=== PATIENT | male | born 1975 | race Caucasian/White ===

== ENCOUNTER 2018-09-08 00:25 | Emergency (ER) | payer SELFPAY ==
[2018-09-08 00:43] VITALS: O2SAT 95
[2018-09-08] MEDS ORDERED: Iohexol 240 (50 ml) PO STA (01:17)
[2018-09-08 01:35] LABS: BASO % 0.2 % (0.0-2.0); EOS % 0.2 % (0.0-4.0); HEMOGLOBIN 14.7 g/dL (12.0-18.0); LYMPH % 7.3 % (20.0-40.0); MEAN CELL VOLUME 87.9 fL (80.0-94.0); MEAN CORPUSCULAR HGB CONC 34.1 g/dL (33.0-37.0); MONO # 1.4 K/uL (0.0-0.8); MONO % 10.2 % (0.0-10.0); NEUT # 11.5 K/uL (1.8-7.0); NEUT % 82.1 % (50.0-75.0); PLATELET COUNT 224 K/uL (130-400); RBC 4.89 Mil/uL (4.40-5.90); RED CELL DISTRIBUTION WIDTH 13.3 % (11.5-14.5)
[2018-09-08 01:37] LABS: URINE BILIRUBIN NEGATIVE (NEGATIVE); URINE CLARITY Clear (Clear); URINE COLOR Yellow (YELLOW); URINE GLUCOSE (UA) NORMAL (Normal); URINE LEUKOCYTE ESTERASE NEG Leu/uL (Negative); URINE PROTEIN NEGATIVE (NEGATIVE)
[2018-09-08 01:49] LABS: ALB/GLOB RATIO 1.4 (1.0-2.1); ALBUMIN 4.6 g/dL (3.5-5.0); ALT/SGPT 34 U/L (21-72); AST/SGOT 22 U/L (17-59); BLOOD UREA NITROGEN 9 mg/dL (9-20); GFR NON-AFRICAN AMERICAN > 60; LIPASE 58 U/L (23-300)
[2018-09-08 01:58] LABS: EOSINOPHIL 1 % (0-4); LYMPHOCYTE 8 % (20-40); MONOCYTE 12 % (0-10); NEUTROPHIL 79 % (50-75); PLATELET ESTIMATE NORMAL (NORMAL); TOTAL CELLS COUNTED 100
[2018-09-08 01:59] LABS: URINE BLOOD TRACE (NEGATIVE)
--- NOTE | 2018-09-08 02:33 | C.PDOC ---
History Of Present Illness 42 year old male presents to the ED c/o RLQ abdominal pain that started yesterday. Patient is s/p appendectomy done on 2011. Patient denies fever, chills, nausea, vomit, diarrhea, bloody stools, back pain, dysuria, hematuria. Time Seen by Provider: 09/08/18 00:57 Chief Complaint (Nursing): Abdominal Pain History Per: Patient History/Exam Limitations: no limitations Onset/Duration Of Symptoms: Days (1) Current Symptoms Are (Timing): Still Present Location Of Pain/Discomfort: RLQ Quality Of Discomfort: "Pain" Associated Symptoms: denies: Nausea, Vomiting, Diarrhea, Urinary Symptoms Recent travel outside of the [place]: No Additional History Per: Patient Past Medical History Reviewed: Historical Data, Nursing Documentation, Vital Signs Vital Signs: Last Vital Signs Temp 100.5 F H 09/08/18 00:35 Pulse 114 H 09/08/18 00:35 Resp 20 09/08/18 00:35 BP 122/83 09/08/18 00:35 Pulse Ox 95 09/08/18 00:35 - Medical History PMH: No Chronic Diseases Surgical History: Appendectomy (August 2011) Family History: States: Unknown Family Hx - Social History Hx Alcohol Use: Yes Hx Substance Use: No - Immunization History Hx Tetanus Toxoid Vaccination: No Hx Influenza Vaccination: Yes (May 2018) Hx Pneumococcal Vaccination: No Review Of Systems Constitutional: Negative for: Fever, Chills Cardiovascular: Negative for: Chest Pain Respiratory: Negative for: Shortness of Breath Gastrointestinal: Positive for: Abdominal Pain. Negative for: Nausea, Vomiting, Diarrhea Genitourinary: Negative for: Dysuria Musculoskeletal: Negative for: Back Pain Skin: Negative for: Rash Neurological: Negative for: Weakness, Numbness, Headache Physical Exam - Physical Exam Appears: Non-toxic, No Acute Distress Skin: Warm, Dry Head: Normacephalic Eye(s): bilateral: Normal Inspection Oral Mucosa: Moist Neck: Normal ROM, Supple Chest: Symmetrical Cardiovascular: Rhythm Regular Respiratory: Normal Breath Sounds, No Rales, No Rhonchi, No Wheezing Gastrointestinal/Abdominal: Soft, Tenderness (Moderate RLQ), No Distention, No Guarding, Rebound Back: No CVA Tenderness Extremity: Normal ROM, No Tenderness, No Swelling Neurological/Psych: Oriented x3, Normal Speech, Normal Cognition Gait: Steady ED Course And Treatment - Laboratory Results Result Diagrams: 09/08/18 01:32 09/08/18 01:32 Lab Results: Total Bilirubin 1.7 mg/dL (0.2-1.3) H 09/08/18 01:32 AST 22 U/L (17-59) 09/08/18 01:32 ALT 34 U/L (21-72) 09/08/18 01:32 Alkaline Phosphatase 96 U/L (38-126) 09/08/18 01:32 Total Protein 8.0 g/dL (6.3-8.3) 09/08/18 01:32 Albumin 4.6 g/dL (3.5-5.0) 09/08/18 01:32 Globulin 3.4 gm/dL (2.2-3.9) 09/08/18 01:32 Albumin/Globulin Ratio 1.4 (1.0-2.1) 09/08/18 01:32 Lipase 58 U/L (23-300) 09/08/18 01:32 Urine Color Yellow (YELLOW) 09/08/18 01:32 Urine Clarity Clear (Clear) 09/08/18 01:32 Urine pH 5.0 (5.0-8.0) 09/08/18 01:32 Ur Specific Drexel 1.015 (1.003-1.030) 09/08/18 01:32 Urine Protein Negative mg/dL (NEGATIVE) 09/08/18 01:32 Urine Glucose (UA) Normal mg/dL (Normal) 09/08/18 01:32 Urine Ketones 1+ mg/dL (NEGATIVE) H 09/08/18 01:32 Urine Blood Trace (NEGATIVE) H 09/08/18 01:32 Urine Nitrate Negative (NEGATIVE) 09/08/18 01:32 Urine Bilirubin Negative (NEGATIVE) 09/08/18 01:32 Urine Urobilinogen 2.0 mg/dL (0.2-1.0) 09/08/18 01:32 Ur Leukocyte Esterase Neg Kristopher/uL (Negative) 09/08/18 01:32 Urine WBC (Auto) < 1 /hpf (0-5) 09/08/18 01:32 Urine RBC (Auto) 2 /hpf (0-3) 09/08/18 01:32 O2 Sat by Pulse Oximetry: 95 (ON RA) Pulse Ox Interpretation: Normal - CT Scan/US CT abd/pelvis Other Rad Studies (CT/US): Read By Radiologist, Radiology Report Reviewed CT/US Interpretation: CT SCAN OF THE ABDOMEN AND PELVIS WITH CONTRAST. CLINICAL HISTORY: Abdominal pain. TECHNIQUE: Multiple axial and coronal CT images were obtained through the abdomen and pelvis after administration of intravenous and oral contrast material. COMMENTS: Thickening of the cecum and ascending colon. Diffuse colonic diverticulosis. The liver is of uniform attenuation without mass or defect. There is no intra or extrahepatic biliary ductal dilatation. The spleen is normal. The gallbladder is within normal limits. The pancreas is of no rmal contour and attenuation characteristics. There is no evidence of adrenal mass. Both kidneys demonstrate prompt and equal nephrograms. The kidneys are normal in size, shape and configuration. There is no evidence of renal or ureteral mass. No renal or ureteral calculi are identified. There is no hydroureter or hydronephrosis. Appendectomy. No evidence for small or large bowel obstruction. There is no evidence of abdominal ascites or lymphadenopathy. There is no evidence of intrinsic or extrinsic bladder mass. There is no pelvic ascites or lymphadenopathy. Images of the lung bases show no evidence of pleural or parenchymal mass. There are no pleural effusions. The bony structures are free of lytic or blastic lesions. IMPRESSION: Acute uncomplicated colitis involving the cecum and ascending colon. Thank you for your kind referral of this patient. . Electronically signed on Sep 08, 2018 4:10:23 AM EST by: Carmelo Caputo M.D., Certified by ABR, MSK, Neuroradiology Progress Note: Plan: - CT abd/pelvis. - Labs. - Zofran 4 mg IVP. - Toradol 30 mg IVP. - UA. Labs and Abd Ct reviewed,and d/w the pt. Pt laying comfortably in stretcher in NAD, VSS. Abd now soft NT. Advised follow up with PMD. Retur precautions strongly stressed to pt and relative at bedside Reevaluation Time: 04:16 Reassessment Condition: Improved Disposition - Disposition Referrals: Raffi Ventura MD [Staff Provider] - Disposition: HOME/ ROUTINE Disposition Time: 04:24 Condition: STABLE Additional Instructions: Please follow up in clinic Return to ER if worse Prescriptions: Ciprofloxacin [Cipro] 1 tab PO BID #14 tab metroNIDAZOLE [Flagyl] 500 mg PO BID #14 tab Instructions: Colitis (DC) Forms: [employer] (Estonian) - POA Present On Arrival: Poor Glycemic Control - Clinical Impression Clinical Impression: Colitis, Abdominal pain - PA / COOLER OPERATOR / Resident Statement MD/DO has reviewed & agrees with the documentation as recorded. - Scribe Statement The provider has reviewed the documentation as recorded by the Scribe Jacinto Alexandre All medical record entries made by the Scribe were at my direction and personally dictated by me. I have reviewed the chart and agree that the record accurately reflects my personal performance of the history, physical exam, medical decision making, and the department course for this patient. I have also personally directed, reviewed, and agree with the discharge instructions and disposition.
[2018-09-08 04:13] VITALS: BP 107/71; PULSE 89; RESP 16; TEMP 98.8
--- NOTE | 2018-09-08 09:08 | CT ---
CT abdomen and pelvis History: Right lower quadrant abdominal pain. Prior appendectomy. COMPARISON: None available. Technique: Multiple contiguous axial images were performed through the abdomen and pelvis with the use of intravenous contrast. Subsequently, sagittal and coronal reformatted images were obtained. This CT exam was performed using one or more of the following dose reduction techniques: Automated exposure control, adjustment of the mA and/or kV according to patient size, and/or use of iterative reconstruction technique. Findings: Mild atelectasis at the lung bases. No pleural or pericardial effusion. Fatty infiltration of the liver. Relative increased attenuation within the left hepatic lobe on series 3, image 35 may represent some adjacent streak artifact. Gallbladder is preserved. Spleen is preserved. Mild nodularity of the adrenal glands. Pancreas is preserved. Few mildly distended loops of small bowel seen within the upper abdomen. Right kidney: No calculi or hydronephrosis. Left Kidney: No calculi or hydronephrosis. Distended urinary bladder. Prostate and seminal vesicles are grossly preserved. Fecal retention in the colon. Prior appendectomy. Prominent focal thickening of the cecum and proximal to mid ascending colon with adjacent fat stranding suggestive for a colitis. Post treatment interval follow-up may be helpful. Additional focal thickening of the terminal ileum. Colonic diverticulosis. Few shotty para-aortic and mesenteric nodes. Degenerative changes in the spine. Prominent posterior disc osteophyte complex at the L3-4 level. Impression: Prior appendectomy. Prominent focal thickening of the cecum and proximal to mid ascending colon with adjacent fat stranding suggestive for a colitis. Post treatment interval follow-up may be helpful. Additional focal thickening of the terminal ileum. Clinical correlation. Additional findings as above. These findings were preliminarily reported at 4:10 a.m. on 09/08/2018 by By Carmelo Caputo from [employer].
== END 2018-09-08 04:46 | disposition home or self-care (01) ==
LOC: C.ER 00:25
DX: K52.9 Noninfective gastroenteritis and colitis, unspecified (principal); R10.31 Right lower quadrant pain
CPT/HCPCS: 74177; 80053; 81001; 83690; 85025; 96374; 96375; 99284; J1885; J2405; Q9966